=== PATIENT | female | born 1980 | race Caucasian/White ===

== ENCOUNTER 2018-05-07 10:05 | Day surgery (SDC) | payer OTHER ==
--- NOTE | 2018-05-04 10:47 | PREOPHP ---
DATE OF ADMISSION: 05/07/2018 HISTORY OF PRESENT ILLNESS: The patient is a 37-year-old female in overall good health, who recently was found to have a left breast mass measuring 2.7 cm located between 1 and 2 o'clock in the left breast 6 cm from the nipple. 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 She is scheduled to undergo excisional biopsy of this left breast mass. MEDICATIONS: Levothyroxine. ALLERGIES: None. PAST SURGICAL HISTORY: Thyroidectomy in 2016. REVIEW OF SYSTEMS: 8, para 2. PHYSICAL EXAMINATION: GENERAL: The patient is 5 feet 7 inches approximately 150 pounds with normal vital signs. HEENT: Within normal limits. LUNGS: Clear. HEART: Regular rhythm. The breasts are large and ptotic. ABDOMEN: There is a left breast mass at 1 to 2 o'clock, approximately 6 cm from the nipple, measuring approximately 3 cm near the periphery of the upper outer quadrant, right breast is unremarkable. There was no palpable axillary or supraclavicular lymphadenopathy. ABDOMEN: Soft. Pelvic and rectal per primary care. EXTREMITIES: Without edema. NEUROLOGIC: Physiologic. IMPRESSION: Left breast mass either fibroadenoma or phyllodes tumor. PLAN: Excision of left breast mass. I have had a full discussion with the patient regarding the nature of the surgery, indications, alternatives, options and risks including bleeding, infection, need for additional surgery based on final pathology or additional treatments, scarring, deformity of the breast, etc. All questions have been answered. She understands and agrees to proceed as an outpatient under general anesthesia. Dictated By: LISETTE XAVIER/SIOBHAN Conf#: [id number] DID#: [id number] CC: LISETTE CROSS MD;*EndCC* MTDD
[2018-05-07] VITALS (11 sets, daily range): BP systolic 94–119; BP diastolic 55–75; PULSE 79–96; RESP 13–20; Ht 170.2 cm; Wt 69.1 kg
[~2018-05-07] VITALS: Ht 170.2 cm; Wt 69.1 kg
[~2018-05-07 10:05] MED LIST: CEFAZOLIN 2 GM/50 ML (PMX) 50 ML IVPB SCH; SOD CHLORIDE 0.9% 1,000 ML IV ONE
--- NOTE | 2018-05-07 10:29 | HPN ---
Date/Time of Note Date/Time of Note DATE: 05/07/18 TIME: 10:29 Interval H&P Admission Note Pt. seen H&P reviewed: No system changes LISETTE CROSS May 07, 2018 10:29
[2018-05-07] MEDS ORDERED: ISOSULFAN BLUE 1% 5 ML INJ SC ONE ×2 (10:47→14:04)
[2018-05-07] MEDS ORDERED: LEVO100T82 PO (11:23)
--- NOTE | 2018-05-07 14:05 | PREAC ---
Date/Time of Note Date/Time of Note DATE: 05/07/18 TIME: 14:05 Anesthesia Eval and Record Evaluation Time Pre-Procedure Interview DATE: 05/07/18 TIME: 14:05 Age 37 Sex female NPO: 8 hrs Preoperative diagnosis left breast mass Planned procedure excision of mass Past Medical History Past Medical History: Includes Endo: Hypothyroid Surgery & Anesthesia Issues No known issue Meds Anticoagulation: No Beta Jon within 24 hr: No Reason Beta Jon not given: Pt. not on B-Jon Reported Medications Levothyroxine Sodium* (Levoxyl*) 100 Mcg Tablet, 100 MCG PO BEFORE BREAKFAST, #30 TAB 05/07/18 Current Medications Cefazolin Sodium/ Dextrose 50 ml @ 100 mls/hr PRE-OP IVPB ; Start 05/07/18 at 09:00; Stop 05/07/18 at 18:00 Sodium Chloride 1,000 ml @ 75 mls/hr [id number] ONCE IV ; Start 05/07/18 at 09:00; Stop 05/07/18 at 22:19 Meds reviewed: Yes Allergies Coded Allergies: No Known Allergy (Unverified , 05/07/18) Allergies Reviewed: Yes Labs/Studies Labs Reviewed: Reviewed by anesthesiologist test: Negative Pre-procedure Exam Last vitals Vital Signs Date Temp Pulse Resp B/P (MAP) Pulse Ox O2 O2 Flow FiO2 Time Delivery Rate 05/07/18 97.1 79 16 94/55 (68) 100 Room Air 11:49 Airway: Adequate mouth opening, Adequate thyromental dist Mallampati: Mallampati I Teeth: Normal Lung: Normal Heart: Normal ASA Physical Status ASA physical status: 2 Emergency: None Pre-operative Attestations Prior to commencing anesthesia and surgery, the patient was re-evaluated, there was verification of: *The patient's identity *The results of appropriate recent lab work and preoperative vital signs *The above evaluation not changing prior to induction *Anesthetic plan, risk benefits, alternative and complications discussed with patient/family; questions answered; patient/family understands, accepts and wishes to proceed. PATT WHITE DO May 07, 2018 14:05
[2018-05-07] MEDS ORDERED: LIDOCAINE 2% (SDV) 5 ML INJ ONE (14:09)
[2018-05-07] MEDS ORDERED: PROPOFOL 20 ML ONE (14:09)
[2018-05-07] MEDS ORDERED: MIDAZOLAM 1 MG/ML 2 ML INJ ONE (14:09)
[2018-05-07] MEDS ORDERED: ROPIVACAINE 0.2% 20 ML VIAL ONE (14:26)
[2018-05-07] MEDS ORDERED: CEFAZOLIN 1 GM INJ ONE (14:30)
[2018-05-07] MEDS ORDERED: HYDROmorphONE 1 MG/5 ML IV SYRINGE IV PRN ×2 (14:30)
[2018-05-07] MEDS ORDERED: FENTAnyl 50 MCG/ML VIAL ONE (14:38)
[2018-05-07] MEDS ORDERED: ONDANSETRON 4 MG INJ ONE (14:38)
--- NOTE | 2018-05-07 15:07 | SIPON ---
Date/Time of Note Date/Time of Note DATE: 05/07/18 TIME: 15:06 Operative Report Preoperative Diagnosis left breast mass Postoperative Diagnosis same Operation/Procedure Performed excision of left breast mass Surgeon see signature line mechanic's assistant none Anesthesia: general Estimated blood loss: none Transfusion Required none Specimen left breast mass Grafts/Implants none Complications none LISETTE CROSS May 07, 2018 15:07
--- NOTE | 2018-05-07 15:19 | PAC ---
Date/Time of Note Date/Time of Note DATE: 05/07/18 TIME: 15:18 Post-Anesthesia Notes Post-Anesthesia Note Last documented vital signs Vital Signs Date Temp Pulse Resp B/P (MAP) Pulse Ox O2 O2 Flow FiO2 Time Delivery Rate 05/07/18 98 80 16 130/65 100 Room Air 1518 Activity: WNL Respiratory function: WNL Cardiovascular function: WNL Mental status: Baseline Pain reasonably controlled: Yes Hydration appropriate: Yes Nausea/Vomiting absent: Yes PATT WHITE DO May 07, 2018 15:19
--- NOTE | 2018-05-07 15:56 | OPR ---
DATE OF OPERATION: 05/07/2018 SURGEON: Lisette Sanchez MD [employer] SURGEON: None. ANESTHESIOLOGIST: Juarez Norton DO TYPE OF ANESTHESIA: General. PREOPERATIVE DIAGNOSIS: Left breast mass, fibroadenoma versus phyllodes tumor. POSTOPERATIVE DIAGNOSIS: Left breast mass, fibroadenoma versus phyllodes tumor. OPERATION PERFORMED: Excision of left breast mass. DESCRIPTION OF PROCEDURE: The patient was taken to the operating room and under general anesthesia, with sequential compression device stockings in place, she was prepped and draped in the usual fashion. The lesion was located near the periphery of the left upper outer quadrant and was readily palpable. A curvilinear incision was made overlying the mass, achieving hemostasis with cautery. The mass was excised by enucleating it and achieving hemostasis with cautery. The mass was given off the field for pathology. The field was irrigated and hemostasis was secure. The breast capsule was reapproximated with 3-0 Vicryl sutures. The incision was closed with interrupted deep dermal subcutaneous 3-0 Vicryl sutures followed by continuous 4-0 Monocryl subcuticular suture. Mastisol and 1/2-inch Steri-Strips were applied, followed by dry sterile dressing. Final sponge and needle counts were correct. The patient tolerated the procedure well and left the operating room in good condition. Dictated By: LISETTE XAVIER/SIOBHAN Conf#: [id number] DID#: [id number] MTDD
== END 2018-05-07 17:17 | disposition home or self-care (01) ==
LOC: SDS 10:05
PROVIDERS: ATTEND Surgery
DX: D24.2 Benign neoplasm of left breast (principal); E03.9 Hypothyroidism, unspecified
CPT/HCPCS: 19120; 88307; J0690; J1170; J2250; J2405; J2795; J3010; Z7512; Z7610; Q9968